=== PATIENT | female | born 2000 | race Caucasian/White ===

== ENCOUNTER 2023-08-24 20:39 | Inpatient (IN) ==
[2023-08-24] MEDS ORDERED: CALCIUM CARBONATE 500 MG CHEWABLE TAB PO PRN (21:25)
[2023-08-24] MEDS ORDERED: LIDOCAINE 1% LOCAL 20 ML VIAL INFIL PRN (21:25)
[2023-08-24] MEDS ORDERED: ACETAMINOPHEN 500 MG TAB PO PRN (21:25)
[2023-08-24] MEDS: PENICILLIN GK 6 MU in DEXTROSE 5% 250 ML IV STA (21:45)
--- NOTE | 2023-08-24 21:50 | History & Physical Report ---
Date of Service August 24, 2023 Assessment & Plan (1) Supervision of normal intrauterine in primigravida: Plan: IUP at 39 6/7 weeks in early labor with (+) GBS will start PCN prophylaxis now plan reviewed- prefers to have minimal intervention/ unmedicated agreeable to emergency interventions and discussions about labor management if she is not progressing- ie. AROM/ pitocin aument anticipate vaginal Admission and Anticipated Discharge Date Admission Date: August 24, 2023 History of Present Illness Primary Care Provider: Abrahan Au MD Patient is a 23 yo female EDC 08/25/23 who presents at 39 6/7 weeks with regular contractions that are now 3-6 minutes apart and getting stronger. No SPROM but has had some bloody show for the past week. uncomplicated. GBS- positive/ A-negative Allergies Allergy/AdvReac Type Severity Reaction Status Date / Time cefuroxime [From Ceftin] Allergy Mild Vomiting Verified 08/19/23 13:46 shellfish derived Allergy Mild Vomiting Verified 08/19/23 13:46 Home Medications Medication Instructions Recorded Confirmed Type PNV no.[id number] PO 07/14/23 08/19/23 History [ Gummies] pediatric [id number] PO 07/14/23 08/19/23 History [Flintstones Complete (iron)] Patient History Medical History (Updated 08/24/23 @ 21:49 by Kristina Canada MD, FACOG) Decreased movement Post traumatic stress disorder Anxiety Vomiting bile Stomach pain Anemia Jaw clicking has improved in recent years--no device Allergy-induced asthma inhaler prn, last used in Sep 2022 "summer allergies" History of COVID-19 x4--last 2021--was hospitalized for severe lethargy and severe headache--no symptoms now Surgical History History of wisdom tooth extraction History of appendectomy Family History Other Dyslipidemia Hypertension No family history of adverse response to anesthesia Social History Smoking Status: Former smoker Tobacco Type: Cigarettes and E-cigarettes / Vaping Cigarettes Per Day: quit cigs/vaping 2017; Second Hand Exposure: No; Do You Dip or Chew Tobacco: No; Hx Alcohol Use: No Hx Substance Use: Yes Preferred Language: Ukrainian Communication Ability: Effective Packing Room Inspector Required: No Beliefs That Will Affect Care: None marital status: Single marital status details: Tramaine (27) [phone] Current Living Situation: Significant Other Current Living Situation Comment: lives with fob, 1 cat, fob changing litter current occupational status: unemployed Other Information That Helps Us Care for You: No Feels Safe at Home: Yes Assistive Devices: None Review of Systems All systems reviewed & are unremarkable except as noted in HPI & below Physical Exam Constitutional: WD/WN, vitals as above Psychiatric: A+Ox3, euthymic affect Genitourinary: OB Exam Abdomen: + vertex and + regular contractions (Q 3-5 minutes) Manual OB Exam: + cervical dilation 3 cm, + cervical effacement 100% and + station -1 OB Exam Monitor Tracing: + external FHT monitor used, + external uterine monitor used, + category I and + normal FHT variability Results & Data Vital Signs (Past 12 Hours) Vital Signs Temp Pulse Resp BP 08/24/23 21:12 77 129/87 08/24/23 20:55 97.5 F L 18 Code Status & VTE Plan VTE Prophylaxis Plan VTE Prophylaxis will be ordered: No Coding Level of Care Code 43083 INT INP/OBS CARE 1/40MIN Diagnoses Encounter for supervision of normal first in third trimester Z34.03 Trimester: third trimester (1) Supervision of normal intrauterine in primigravida Trimester: third trimester Qualified Code(s): Z34.03 - Encounter for supervision of normal first , third trimester
[2023-08-24] MEDS: LACTATED RINGER'S 1,000 ML IV PRN (21:52)
[2023-08-24 22:05] LABS: Hematocrit (blood only) 33.6 % (37.0-47.0); Hemoglobin 10.6 g/dl (12.0-16.0); Mean Corpuscular Hemoglobin 27.4 pg (25.0-34.0); Mean Corpuscular Hgb Conc 31.5 g/dL (32.0-36.0); Mean Corpuscular Volume 86.8 fL (80.0-100.0); Mean Platelet Volume 12.5 fL (9.4-12.4); Platelet Count 212 K/uL (130-400); RDW Coefficient of Variation 13.8 % (11.5-14.5); Red Blood Count 3.87 M/uL (4.20-5.40)
[2023-08-24] MEDS: BUTORPHANOL TARTRATE 2 MG/ML VIAL IV PRN (22:09)
[2023-08-24] MEDS ORDERED: ePHEDrine sulfate 50 MG/ML AMP IV PRN (23:29)
[2023-08-24] MEDS ORDERED: SODIUM CHLORIDE 0.9% PF INJ 10 ML VIAL EPI STA (23:29)
[2023-08-24] MEDS ORDERED: ROPIVACAINE 0.5% PF 5 MG/ML 20 ML VIAL EPI PRN (23:29)
[2023-08-24] MEDS ORDERED: fentaNYL citrate PF 100 MCG/2 ML VIAL EPI STA (23:29)
[2023-08-24] MEDS ORDERED: LIDOCAINE 2%/EPINEPHRINE 1:200,000 20 ML PF EPI STA (23:29)
[2023-08-24] MEDS ORDERED: LIDOCAINE 2% MPF LOCAL 5 ML VIAL EPI PRN (23:29)
[2023-08-24] MEDS ORDERED: BUPIVACAINE 0.25% PF 30 ML VIAL EPI PRN (23:29)
[2023-08-24] MEDS ORDERED: NALOXONE HCL 0.4 MG/1 ML VIAL/CARP IV PRN (23:29)
[2023-08-24] MEDS ORDERED: NALOXONE HCL 1 MG in SODIUM CHLORIDE 0.9% 1,000 ML IV PRN (23:29)
[2023-08-24] MEDS ORDERED: fentANYL 2 MCG/ML BUPIVacaine 0.125%-NSS 100ML BAG EPI PRN (23:29)
[2023-08-24] MEDS ORDERED: BUPIVACAINE 0.25% PF 30 ML VIAL EPI STA (23:29)
[2023-08-24] MEDS ORDERED: NALBUPHINE HCL 5 MG in SYRINGE 0 ML IV PRN (23:29)
[2023-08-24] MEDS ORDERED: diphenhydrAMINE 50 MG/ML VIAL IV PRN (23:29)
[2023-08-24] MEDS ORDERED: fentaNYL citrate PF 100 MCG/2 ML VIAL EPI PRN (23:29)
[2023-08-24] MEDS ORDERED: SODIUM CHLORIDE 0.9% PF INJ 10 ML VIAL EPI PRN (23:29)
--- NOTE | 2023-08-24 23:29 | Anesthesiology Consultation ---
Date of Service August 24, 2023 Assessment & Plan ASA ASA2 Proposed Anesthesia Anesthesia Type: Labor Epidural Risk / Benefits Reviewed With: PT / POA / Parent / Guardian, Accepts Plan and Informed Consent Obtained History Height/Weight Height: 5 ft 6 in Weight: 91.172 kg Allergies Allergy/AdvReac Type Severity Reaction Status Date / Time cefuroxime [From Ceftin] Allergy Mild Vomiting Verified 08/19/23 13:46 shellfish derived Allergy Mild Vomiting Verified 08/19/23 13:46 Medications Home Medications Medication Instructions Recorded Confirmed Last Taken PNV no.[id number] PO 07/14/23 08/19/23 08/15/23 [ Gummies] pediatric [id number] PO 07/14/23 08/19/23 08/21/23 [Flintstones Complete (iron)] Active Medications Generic Name Dose Route Start Last Admin Trade Name Freq PRN Reason Stop Dose Admin Butorphanol Tartrate 1 mg 08/24/23 21:55 08/24/23 22:09 Butorphanol Tartrate 2 Mg/Ml Vial IV 09/23/23 21:54 1 mg Q2H PRN Administration Pain Lactated Ringer's 1,000 mls @ 125 mls/hr 08/24/23 21:25 08/24/23 22:48 Lr IV 08/26/23 21:24 999 mls/hr .Q8H PRN Infusion L&D Protocol Protocol Past Medical History Medical History Decreased movement Post traumatic stress disorder Anxiety Vomiting bile Stomach pain Anemia Jaw clicking has improved in recent years--no device Allergy-induced asthma inhaler prn, last used in Sep 2022 "summer allergies" History of COVID-19 x4--last 2021--was hospitalized for severe lethargy and severe headache--no symptoms now Exercise / Class Metabolic Activity II 4-5 Yardwork/Stairs/Walk up hill Past Family History Family History Other Dyslipidemia Hypertension No family history of adverse response to anesthesia Past Surgical History Surgical History History of wisdom tooth extraction History of appendectomy Past Anesthesia History No Hx of Anesthesia Complications and No Family Hx of Anesthesia Complications History of PONV No Hx of PONV and No Hx of Motion Sickness Social History Smoking Status: Former smoker Smoking cigarettes per day: quit cigs/vaping 2018 Do You Dip or Chew Tobacco: No Hx Alcohol Use: No Hx Substance Use: Yes substance use type: marijuana Review of Systems denies fever/cough/ colds/ chest pain/ SOB/ ANNA MARIE denies ANNA MARIE Physical Exam Vital Signs Last Vital Signs Temp 36.4 C L 08/24/23 20:55 Pulse 77 08/24/23 21:12 Resp 18 08/24/23 20:55 BP 129/87 08/24/23 21:12 ENMT Mouth: no TMJ abnormality and no dentition abnormality Thyromental Distance: > or= 3.5 Finger Breadths Mallampati Class: II Neck neck extension not limited Respiratory normal respiratory effort; no respiratory distress Auscultation: lungs clear to auscultation bilaterally Cardiovascular Rate/Rhythm: regular rate and regular rhythm Neurologic moves all extremities Psychiatric Orientation: alert and oriented x 3 Testing Laboratory Results 08/24/23 21:43
[2023-08-24] MEDS: OXYTOCIN 30 UNITS/NSS 30 UNITS/500 ML BAG IV PRN (23:43)
[2023-08-24] MEDS: LIDOCAINE 1% LOCAL 20 ML VIAL INFIL ONE (23:45)
[2023-08-25] MEDS ORDERED: IBUPROFEN 600 MG TAB PO PRN (00:03)
[2023-08-25] MEDS ORDERED: BENZOCAINE 20% SPRY 85 APPLN/85 GM CAN EXT PRN (00:03)
[2023-08-25] MEDS ORDERED: oxyCODONE/ACETAMINOPHEN 5mg/325mg TAB PO PRN (00:03)
[2023-08-25] MEDS ORDERED: OXYTOCIN 30 UNITS/NSS 30 UNITS/500 ML BAG IV PRN (00:03)
[2023-08-25] MEDS ORDERED: HYDROCORTISONE ACETATE 25 MG SUPP PR PRN (00:03)
[2023-08-25] MEDS ORDERED: ACETAMINOPHEN 325 MG TAB PO PRN (00:03)
--- NOTE | 2023-08-25 00:18 | Delivery Summary ---
Vaginal Delivery Summary Date of Service August 25, 2023 Vaginal Delivery Summary and 2nd Degree LAC Patient is a 23-year-old 1 P0 female EDC of 08/25/2023 who presented in active labor. She progressed rapidly to full dilation with urge to push. Membranes ruptured for clear fluid. She pushed effectively over intact perineum for delivery of a viable female infant. After the head was delivered with maternal effort, the rest of the followed quickly. She was placed on mother's abdomen for further attention and drying. She was vigorous crying and moving all 4 limbs. After 90 seconds, the cord was clamped and cut. After cord blood was obtained, the placenta was expressed intact with a three-vessel cord. bleeding was controlled with dilute Pitocin and fundal massage. A second-degree perineal laceration was repaired with 3-0 chromic in usual fash ion. 15 cc of 1% lidocaine was used to anesthetize the repair site. QBL was 175 mL. Mother and doing well after delivery. [facility] Vaginal Delivery Charge Delivery Type Details: and 2nd Degree LAC
[2023-08-25] MEDS ORDERED: PENICILLIN GK 3 MU in DEXTROSE 5% 100 ML IV PRN (00:25)
[2023-08-25] MEDS: ePHEDrine sulfate 50 MG/ML AMP ONE (00:32)
[2023-08-25] MEDS: fentaNYL citrate PF 100 MCG/2 ML VIAL ONE (00:32)
[2023-08-25] MEDS: SODIUM CHLORIDE 0.9% PF INJ 10 ML VIAL ONE (00:33)
[2023-08-25] MEDS: LIDOCAINE 2%/EPINEPHRINE 1:200,000 20 ML PF ONE (00:33)
[2023-08-25] MEDS: fentANYL 2 MCG/ML BUPIVacaine 0.125%-NSS 100ML BAG ONE (00:33)
[2023-08-25] MEDS: BUPIVACAINE 0.25% PF 30 ML VIAL ONE (00:33)
[2023-08-25] MEDS: DIPHTHER/TETAN/PERTUS Vaccine (Tdap, Adol/Adult) 0.5mL IM ONE (02:13)
--- NOTE | 2023-08-25 06:21 | Obstetrical Progress Note ---
Date of Service <Bryce De La Garza DO - Last Filed: 08/25/23 07:23> August 25, 2023 Assessment & Plan <Bryce De La Garza DO - Last Filed: 08/25/23 07:23> (1) Encounter for assessment: Patient is PPD 1 s/p and doing well - Eating well, voiding well, ambulating well - vitals reviewed and within normal limits - pain well controlled with analgesics - OOB, ambulation, diet progression as tolerated - Blood type: A-, GBS pos, rubella immune - Plan to discharge tomorrow - After discharge, 6 week follow up with OB visit type: exam and care immediately after delivery Qualified Code(s): Z39.0 - Encounter for care and examination of mother immediately after delivery <Kristina Canada MD, FACOG - Last Filed: 08/25/23 08:59> (1) Encounter for assessment: Subjective <Bryce De La Garza DO - Last Filed: 08/25/23 07:23> 23 yo post- day 1 s/p Ambulation: ambulating normally Voiding: no voiding problems Passing Gas:: Yes Diet Tolerance:: regular diet Lochia:: Small Feeding Type:: bottle feeding Current Pain Level: 0/10 at rest 2/10 ambulating Resting comfortably this AM in NAD. Denies RESENDIZ, CP, SOB, N/V/D, LE pain/swelling. Physical Exam <Bryce De La Garza DO - Last Filed: 08/25/23 07:23> General: patient resting comfortably, NAD, non-toxic in appearance, answers questions appropriately. Skin: warm, dry, intact HEENT: NC/AT, anicteric sclera, conjunctiva without injection, moist mucus membranes. Heart: +S1/S2, regular, no m/r/g Lungs: equal air entry bilaterally, no rales/rhonchi/wheezes Abd: +BS, soft, NT/ND, uterine fundus firm at umbilicus Ext: warm, no clubbing/cyanosis or edema, Radha's neg. Neuro: nonfocal, speech intact, no facial droop, moving all extremities. Results & Data <Bryce De La Garza DO - Last Filed: 08/25/23 07:23> Vital Signs (Past 12 Hours) Vital Signs Temp Pulse Pulse Resp BP BP Pulse Ox 08/25/23 03:05 36.5 C 94 H 16 118/77 98 08/25/23 03:05 08/25/23 02:08 89 142/83 H 08/25/23 02:01 18 08/25/23 02:01 36.9 C 18 08/25/23 00:03 90 142/87 H 08/25/23 00:00 18 08/25/23 00:00 36.7 C 18 08/24/23 21:12 77 129/87 08/24/23 20:55 36.4 C L 18 O2 Del Method 08/25/23 03:05 Room Air 08/25/23 03:05 Room Air 08/25/23 02:08 08/25/23 02:01 08/25/23 02:01 08/25/23 00:03 08/25/23 00:00 08/25/23 00:00 08/24/23 21:12 08/24/23 20:55 Supervising Physician <Kristina Canada MD, FACOG - Last Filed: 08/25/23 08:59> Co-Signing Physician Notes Resident Physician Supervision Note: I interviewed and examined the patient. Discussed with Dr. De La Garza and agree with findings and plan as documented in the note. Any exceptions or clarifications are listed here: [None] Documented By: Kristina Canada MD, FACOG Resident Activity Tracking <Bryce De La Garza DO - Last Filed: 08/25/23 07:23> Resident Involvement: Resident Care Provided Care Provided: OB Delivery
--- NOTE | 2023-08-25 07:49 | Communication Note ---
Date of Service: August 25, 2023 Patient appeared on [facility] call list. I see no order for GI consult and in notes - nothing mentioned about consulting GI. Therefore patient not seen by [facility] and will remove from our list.
[2023-08-25] MEDS: DOCUSATE SODIUM 100 MG CAP PO SCH (08:12)
[2023-08-25] MEDS: PRENATAL VITAMIN 1 TAB PO SCH (08:12)
[2023-08-26 06:18] LABS: Hematocrit (blood only) 31.1 % (37.0-47.0); Hemoglobin 9.8 g/dl (12.0-16.0); Mean Corpuscular Hemoglobin 27.1 pg (25.0-34.0); Mean Corpuscular Hgb Conc 31.5 g/dL (32.0-36.0); Mean Corpuscular Volume 85.9 fL (80.0-100.0); Mean Platelet Volume 12.8 fL (9.4-12.4); Platelet Count 177 K/uL (130-400); RDW Coefficient of Variation 13.8 % (11.5-14.5); RDW Standard Deviation 42.8 fL (36.4-46.3); Red Blood Count 3.62 M/uL (4.20-5.40)
--- NOTE | 2023-08-26 06:23 | Obstetrical Progress Note ---
Date of Service <Bryce De La Garza DO - Last Filed: 08/26/23 08:02> August 26, 2023 Assessment & Plan <Bryce De La Garza DO - Last Filed: 08/26/23 08:02> (1) Encounter for assessment: Patient is PPD 1 s/p and doing well - Eating well, voiding well, ambulating well - vitals reviewed and within normal limits - pain well controlled with analgesics - OOB, ambulation, diet progression as tolerated - Blood type: A-, GBS pos, rubella immune - Plan to discharge today - After discharge, 6 week follow up with OB visit type: exam and care immediately after delivery Qualified Code(s): Z39.0 - Encounter for care and examination of mother immediately after delivery <Ofelia Castaneda MD, FACOG - Last Filed: 08/26/23 08:11> (1) Encounter for assessment: Subjective <Bryce De La Garza DO - Last Filed: 08/26/23 08:02> 23 yo post- day 2 s/p Ambulation: ambulating normally Voiding: no voiding problems Passing Gas:: Yes Diet Tolerance:: regular diet Lochia:: Small Feeding Type:: bottle feeding Current Pain Level: 3/10 Resting comfortably this AM in NAD. Denies RESENDIZ, CP, SOB, N/V/D, LE pain/swelling. Physical Exam <Bryce De La Garza DO - Last Filed: 08/26/23 08:02> General: patient resting comfortably, NAD, non-toxic in appearance, answers questions appropriately. Skin: warm, dry, intact HEENT: NC/AT, anicteric sclera, conjunctiva without injection, moist mucus membranes. Heart: +S1/S2, regular, no m/r/g Lungs: equal air entry bilaterally, no rales/rhonchi/wheezes Abd: +BS, soft, NT/ND, uterine fundus firm at umbilicus Ext: warm, no clubbing/cyanosis or edema, Radha's neg. Neuro: nonfocal, speech intact, no facial droop, moving all extremities. Results & Data <Bryce De La Garza DO - Last Filed: 08/26/23 08:02> Vital Signs (Past 12 Hours) Vital Signs Temp Pulse Resp BP BP Pulse Ox O2 Del Method 07/15/24 23:00 36.7 C 86 18 126/83 97 Room Air 08/25/23 19:20 36.5 C 88 20 131/78 99 Room Air Supervising Physician <Ofelia Castaneda MD, FACOG - Last Filed: 08/26/23 08:11> Co-Signing Physician Notes Resident Physician Supervision Note: I was present with Dr. De La Garza during the history and exam. I discussed the case with the resident and agree with the findings and plan as documented in the note. Any exceptions or clarifications are listed here: pt doing well, eating, voiding ambulating without issue. bottle feeding. baby rh neg, so does not need rhogam. bps occas >140/90. denies resendiz or visual change or ruq pain. abd soft ff 2down nt, ext nt calves. ppd#2 s/p , will dc home, needs bp check in 3-5days. then 6wk pp check. parameters to call reviewed. routine dc instructions to be reviewed by Dr. De La Garza. bottle, rhneg, ri. Documented By: Ofelia Castaneda MD, FACOG Resident Activity Tracking <Bryce De La Garza DO - Last Filed: 08/26/23 08:02> Resident Involvement: Resident Care Provided Care Provided: OB Delivery
[2023-08-26] MEDS ORDERED: bisacodyL 5 MG TABEC PO SCH (20:00)
[2023-08-27] MEDS ORDERED: bisacodyL 10 MG SUPP PR PRN
--- NOTE | 2023-08-27 07:19 | Gastroenterology Progress Note ---
<Statement entered by Valentín Lei MD - 08/27/23 07:19> Sent to me in error - not my patient Date of Service August 25, 2023 Assessment & Plan Admission and Anticipated Discharge Date Admission Date: August 24, 2023 Results & Data Results & Data Vital Signs (Past 12 Hours) Vital Signs Temp Pulse Pulse Resp BP BP Pulse Ox 08/25/23 03:05 36.5 C 94 H 16 118/77 98 08/25/23 03:05 08/25/23 02:08 89 142/83 H 08/25/23 02:01 18 08/25/23 02:01 36.9 C 18 08/25/23 00:03 90 142/87 H 08/25/23 00:00 18 08/25/23 00:00 36.7 C 18 08/24/23 21:12 77 129/87 08/24/23 20:55 36.4 C L 18 O2 Del Method 08/25/23 03:05 Room Air 08/25/23 03:05 Room Air 08/25/23 02:08 08/25/23 02:01 08/25/23 02:01 08/25/23 00:03 08/25/23 00:00 08/25/23 00:00 08/24/23 21:12 08/24/23 20:55 PG Care Time/CCT Total # of Minutes Spent Total Time Spent with Patient: Total time spent is greater than 50% in coordination of care (as documented) at patient's floor/unit and/or counseling patient: Coding Level of Care Code None
== END 2023-08-26 10:00 | disposition home or self-care (01) | DRG 807 ==
LOC: OPB 20:39 → 4S1 20:42 → 4E2 08-25 02:51